=== PATIENT | male | born 1995 | race Caucasian/White ===

== ENCOUNTER 2016-11-28 09:55 | Emergency (ER) | payer SELFPAY ==
[2016-11-28 12:37] LABS: #Eosinphils 0.1 thou/uL (0.0-0.7); #Lymphocytes 1.6 thou/uL (1.20-3.40); #Monocytes 0.6 thou/uL (0.11-0.59); #Neutrophils 6.3 thou/uL (1.40-6.50); %Basophils 0.3 % (0.0-1.0); %Lymphocytes 18.2 % (28.0-48.0); %Monocytes 6.9 % (0.0-4.0); Hematocrit 46.1 % (42.0-52.0); Mean Platelet Volume 8.7 fL (7.4-10.4); Red Blood Cell (RBC) Count 5.17 mill/uL (4.00-5.20); White Blood Cell (WBC) Count 8.5 thou/uL (4.8-10.8)
--- NOTE | 2016-11-28 12:43 | RAD ---
PA AND LATERAL VIEWS OF CHEST: Date: 11/28/16 HISTORY: Chest pain. FINDINGS: Comparison made with exam of 12/04/13. The cardiomediastinum is normal. The lungs are clear. The bony thorax is normal. IMPRESSION: Normal exam. POS: OFF
[2016-11-28 13:04] LABS: ALT (SGPT) 32 U/L (8-55); AST (SGOT) 21 U/L (10-45); Alkaline Phosphatase 105 U/L (Less than 750); Anion Gap 12 mmol/L (10-20); BUN (Urea Nitrogen) 12 mg/dL (8.4-21.0); Bilirubin, Total 0.5 mg/dL (0.2-1.2); CK (CPK) 78 U/L (30-200); Calc. Creatinine Clearance 0 mL/min (70-130); Calcium 9.4 mg/dL (7.8-10.44); Carbon Dioxide 24 mmol/L (22-29); Chloride 107 mmol/L (98-107); Estimated GFR-MDRD Greater than 90; Globulin 3.4 g/dL (2.4-3.5); Lipase 16 U/L (8-78); Magnesium 2.1 mg/dL (1.7-2.2); Protein, Total 7.5 g/dL (6.0-8.3)
[2016-11-28 13:09] LABS: Troponin I Less than 0.010 ng/mL (< 0.028)
--- NOTE | 2016-11-28 13:21 | CT ---
CT BRAIN WITHOUT CONTRAST: Date: 11/28/16 HISTORY: Dizziness, syncope. FINDINGS: No evidence of acute infarct, hemorrhage, midline shift, or abnormal extra-axial fluid collections a re seen. The ventricular size is normal and the basilar cisterns are patent. The bony calvarium is i ntact. The visualized paranasal sinuses and mastoid air cells are well aerated. IMPRESSION: No CT evidence of acute intracranial process. POS: OFF
[2016-11-28] MEDS ORDERED: Meclizine HCl 25 MG TAB ONE (13:36)
== END 2016-11-28 13:56 | disposition home or self-care (01) ==
LOC: ERS 09:55
DX: H81.13 Benign paroxysmal vertigo, bilateral (principal)
CPT/HCPCS: 70450; 71020; 80053; 82553; 83690; 83735; 83880; 84484; 85025; 93005; 96360

== ENCOUNTER 2017-01-20 11:11 | Emergency (ER) | payer SELFPAY ==
[2017-01-20] MEDS ORDERED: Bacitracin Zinc 1 Packet ONE ×2 (12:03→12:05)
[2017-01-20] MEDS ORDERED: Adacel (T-DAP) 0.5 ML VIAL ONE ×2 (12:03→12:05)
--- NOTE | 2017-01-20 12:21 | RAD ---
3 VIEWS RIGHT HAND: Date: 01/20/17 COMPARISON: None. HISTORY: Injury, pain. FINDINGS: No displaced fracture or dislocation. No radiopaque foreign body or subcutaneous gas. IMPRESSION: No acute fracture or evidence of dislocation seen. POS: REECE
== END 2017-01-20 12:37 | disposition home or self-care (01) ==
LOC: ERS 11:11
DX: S60.410A Abrasion of right index finger, initial encounter (principal); S60.412A Abrasion of right middle finger, initial encounter; S60.414A Abrasion of right ring finger, initial encounter; S60.416A Abrasion of right little finger, initial encounter; W23.0XXA Caught, crushed, jammed, or pinched between moving objects, initial encounter
CPT/HCPCS: 90471; 90715

== ENCOUNTER 2017-06-26 20:25 | Emergency (ER) | payer OTHER, SELFPAY ==
--- NOTE | 2017-06-26 22:15 | RAD ---
RIGHT HAND THREE VIEWS: 06/26/2017 HISTORY: Right hand pain. COMPARISON: None. FINDINGS: There is a comminuted, obliquely oriented fracture involving the distal right fifth metacarpal. Mini mal adjacent callus formation suggests that this may represent a subacute fracture. There is volar d isplacement and angulation of the distal fracture fragment. No additional fracture is seen. IMPRESSION: Comminuted, impacted distal right fifth metacarpal fracture, at the base of the fifth metacarpal head . POS: REECE
== END 2017-06-26 21:37 | disposition home or self-care (01) ==
LOC: ERS 20:25
DX: S62.316A Displaced fracture of base of fifth metacarpal bone, right hand, initial encounter for closed fracture (principal); I38 Endocarditis, valve unspecified; W22.8XXA Striking against or struck by other objects, initial encounter
CPT/HCPCS: 29125

== ENCOUNTER 2018-01-19 09:46 | Emergency (ER) | payer OTHER | END 2018-01-19 10:44 | disposition home or self-care (01) | LOC: ERS 09:46 | DX: L02.416 Cutaneous abscess of left lower limb (principal) | CPT/HCPCS: 99282 ==

== ENCOUNTER 2018-09-19 12:40 | Emergency (ER) | payer OTHER ==
[2018-09-19] MEDS ORDERED: Acetaminophen 500 MG TAB ONE (13:26)
--- NOTE | 2018-09-19 13:35 | RAD ---
PORTABLE CHEST ONE VIEW: 09/19/18 at 1:11 p.m. HISTORY: Chest pain. COMPARISON: Comparison made with exam of 11/28/16. The heart size is normal. No lobar consolidation, pneumothoraces, mariangel pulmonary edema or pleural ef fusions are seen. IMPRESSION: No acute process. POS: OFF
--- NOTE | 2018-09-26 15:29 | EKG ---
Test Reason : Blood Pressure : / mmHG Vent. Rate : 056 BPM Atrial Rate : 056 BPM P-R Int : 156 ms QRS Dur : 102 ms QT Int : 418 ms P-R-T Axes : 012 012 019 degrees QTc Int : 403 ms Sinus bradycardia with sinus arrhythmia Inferior infarct , age undetermined Abnormal ECG Confirmed by RADHA HUBER, KRYSTINA Guzmán ([id number]), editor map CLAIRE JORDAN ([id number]) on 09/26/2018 3:28:25 PM Referred By: Confirmed By:KRYSTINA GARCIA MD
== END 2018-09-19 13:55 | disposition home or self-care (01) ==
LOC: ERS 12:40
DX: M94.0 Chondrocostal junction syndrome [Tietze] (principal)
CPT/HCPCS: 71045; 93005

== ENCOUNTER 2023-07-26 18:57 | Emergency (ER) | payer BC, OTHER ==
[2023-07-26 21:37] LABS: #Basophils 0.03 10x3/uL (0.0-0.2); %Basophils 0.3 % (0.0-1.0); %Eosinophils 1.5 % (0.0-10.0); %Neutrophils 68.8 % (42.0-75.0); Hematocrit 42.3 % (42.0-52.0); Hemoglobin 14.5 g/dL (14.0-18.0); Mean Corpuscular HGB CONC 34.3 g/dL (32.0-36.0); Mean Corpuscular Volume 84.6 fL (78.0-98.0); Mean Platelet Volume 10.9 fL (7.4-10.4); Platelet Count 328 10x3/uL (130-400); RBC Distribution Width 12.8 % (11.5-14.5)
[2023-07-26 21:51] LABS: ALT (SGPT) 43 U/L (8-55); AST (SGOT) 23 U/L (5-34); Albumin 3.7 g/dL (3.5-5.0); Alkaline Phosphatase 106 U/L (40-110); Anion Gap 16 mmol/L (10-20); BUN (Urea Nitrogen) 11 mg/dL (8.9-20.6); Bilirubin, Total 0.4 mg/dL (0.2-1.2); Calc. Creatinine Clearance 0 mL/min (70-130); Carbon Dioxide 23 mmol/L (22-29); Chloride 107 mmol/L (98-107); Estimated GFR 122; Globulin 3.5 g/dL (2.4-3.5); Glucose 83 mg/dL (70-105); Potassium 3.7 mmol/L (3.5-5.1); Protein, Total 7.2 g/dL (6.0-8.3); Sodium 142 mmol/L (136-145)
== END 2023-07-26 22:45 ==
LOC: ERS 18:57
DX: M79.89 Other specified soft tissue disorders (principal)
CPT/HCPCS: 36415; 80053; 85025